=== PATIENT | male | born 1965 | race Hispanic/Latino ===

== ENCOUNTER 2016-12-23 19:01 | Inpatient (IN) | payer OTHER ==
[2016-12-23 19:01] VITALS: BMI 26.9
[2016-12-23] MEDS ORDERED: Sodium Chloride 0.9% 1,000 ML IV ONE (19:54)
[2016-12-23] MEDS ORDERED: Enoxaparin 40 mg Syringe SC STA (19:58)
--- NOTE | 2016-12-23 20:10 | C.PDOC ---
History Of Present Illness Patient is a 51 year old male who presents to the ER complaining of anxiousness , palpations, and light headedness. Patient states he went to the gym today and felt well, went for botox afterwards and had a syncopal episode during the procedure. Patient was helped and felt better, went home and started to feel palpitations in his chest. He decided to go to his doctor's office. Patient states he got an evaluation, EKG, US, and was discharged home. EKG showed A-fib , patient states he has never had A-fib before. Patient reports having an unknown arrhythmia years ago which he was put in ICU for and given medications. Patient denies any shortness of breath, cough, or upper respiratory symptoms. Time Seen by Provider: 12/23/16 19:45 Chief Complaint (Nursing): Shortness Of Breath History Per: Patient History/Exam Limitations: no limitations Onset/Duration Of Symptoms: Hrs Current Symptoms Are (Timing): Still Present Initiating Event: denies: Upper Respiratory Illness, Exercising/Sports Associated Symptoms: Light-headedness. denies: Fever, Chills, Chest Pain Past Medical History Reviewed: Historical Data, Nursing Documentation, Vital Signs Vital Signs: Last Vital Signs Temp 98.4 F 12/24/16 16:18 Pulse 83 12/24/16 16:18 Resp 20 12/24/16 16:18 BP 123/74 12/24/16 16:18 Pulse Ox 96 12/24/16 16:18 - Medical History PMH: Anxiety, HTN - [facility] Procedures IMMOBILIZ/WOUND ATTN NEC (05/10/07) Family History: States: Unknown Family Hx - Social History Hx Tobacco Use: No Hx Alcohol Use: No Hx Substance Use: No - Immunization History Hx Tetanus Toxoid Vaccination: No Hx Influenza Vaccination: No Hx Pneumococcal Vaccination: No Review Of Systems Except As Marked, All Systems Reviewed And Found Negative. Constitutional: Negative for: Fever, Chills Cardiovascular: Positive for: Palpitations, Light Headedness. Negative for: Chest Pain Respiratory: Negative for: Cough, Shortness of Breath Gastrointestinal: Negative for: Nausea, Vomiting Psych: Positive for: Anxiety Physical Exam - Physical Exam Appears: Well, Non-toxic Skin: Normal Color, Warm, Dry Head: Atraumatic, Normacephalic Eye(s): bilateral: PERRL, EOMI Ear(s): Bilateral: Normal Oral Mucosa: Moist Neck: Normal Chest: Symmetrical Cardiovascular: Rhythm Irregular (Rapid a-fib, irregularly irregular), No Edema , No Murmur Respiratory: Normal Breath Sounds, No Rales, No Rhonchi, No Wheezing Gastrointestinal/Abdominal: Soft, No Tenderness Pulses: Left Carotid: Normal, Right Carotid: Normal Neurological/Psych: Oriented x3, Normal Speech, Normal Cognition ED Course And Treatment - Laboratory Results Result Diagrams: 12/24/16 04:39 12/24/16 04:39 Lab Interpretation: No Acute Changes ECG: Interpreted By Me ECG Rhythm: Atrial Fibrillation (with rapid ventricular response) ECG Interpretation: Abnormal O2 Sat by Pulse Oximetry: 100 (Room air) Pulse Ox Interpretation: Normal - Radiology CXR: Interpreted by Me CXR Interpretation: Yes: No Acute Disease Progress Note: EKG, blood work, and chest x-ray. Cardizem IVP, lovenox, and IV fluids administered. Reevaluation Time: 20:57 Reassessment Condition: Improved - Physician Consult Information Time Consulting Physician Contacted: 21:08 Physician Contacted: Giovanny Grajeda Disposition - Disposition Disposition: HOSPITALIZED Disposition Time: 21:10 Condition: GOOD - Clinical Impression Clinical Impression: Atrial fibrillation - Scribe Statement The provider has reviewed the documentation as recorded by the Scribe Henrique Dill All medical record entries made by the Scribe were at my direction and personally dictated by me. I have reviewed the chart and agree that the record accurately reflects my personal performance of the history, physical exam, medical decision making, and the department course for this patient. I have also personally directed, reviewed, and agree with the discharge instructions and disposition.
[2016-12-23] MEDS ORDERED: Enoxaparin 80 mg Syringe ONE (20:11)
[2016-12-23] MEDS ORDERED: Sodium Chloride 0.9% 1,000 ML ONE (20:11)
[2016-12-23 20:17] LABS: BASO # 0.1 K/uL (0.0-0.2); EOS # 0.2 K/uL (0.0-0.7); EOS % 2.2 % (0.0-4.0); HEMATOCRIT 48.7 % (35.0-51.0); LYMPH # 2.8 K/uL (1.0-4.3); LYMPH % 26.6 % (20.0-40.0); MEAN CELL VOLUME 87.1 fL (80.0-94.0); MEAN CORPUSCULAR HEMOGLOBIN 29.8 pg (27.0-31.0); MEAN CORPUSCULAR HGB CONC 34.2 g/dL (33.0-37.0); MEAN PLATELET VOLUME 10.7 fL (7.2-11.7); MONO # 0.8 K/uL (0.0-0.8); MONO % 7.3 % (0.0-10.0); RED CELL DISTRIBUTION WIDTH 13.3 % (11.5-14.5); WHITE BLOOD COUNT 10.4 K/uL (4.8-10.8)
[2016-12-23 20:25] LABS: CHLORIDE 96 mmol/L (98-107); POTASSIUM 3.9 mmol/L (3.6-5.2); SODIUM 140 mmol/L (132-148)
[2016-12-23 20:28] LABS: ALB/GLOB RATIO 1.5 (1.0-2.1); ALKALINE PHOSPHATASE 70 U/L (38-126); ALT/SGPT 26 U/L (21-72); AST/SGOT 26 U/L (17-59); BILIRUBIN,TOTAL 0.7 mg/dL (0.2-1.3); BLOOD UREA NITROGEN 15 mg/dL (9-20); CARBON DIOXIDE 29 mmol/L (22-30); GFR AFRICAN-AMERICAN > 60; GLUCOSE,RANDOM 98 mg/dL (75-110); TOTAL PROTEIN 6.9 g/dL (6.3-8.3)
[2016-12-23 20:29] LABS: CALCIUM 9.1 mg/dl (8.6-10.4)
[2016-12-23 20:33] LABS: PARTIAL THROMBOPLASTIN TIME 29 SECONDS (21-34)
[2016-12-23 20:46] LABS: T4 7.62 ug/dL (5.5-11.0)
[2016-12-23 20:59] LABS: THYROID STIMULATING HORMONE 1.81 mIU/L (0.46-4.68)
[2016-12-24] MEDS ORDERED: Enoxaparin 40 mg Syringe ONE (00:34)
[2016-12-24 02:46] VITALS: RESP 20
[2016-12-24 04:42] LABS: HEMATOCRIT 47.8 % (35.0-51.0); MEAN CELL VOLUME 87.1 fL (80.0-94.0); MEAN CORPUSCULAR HEMOGLOBIN 29.6 pg (27.0-31.0); MEAN PLATELET VOLUME 10.6 fL (7.2-11.7); RED CELL DISTRIBUTION WIDTH 13.6 % (11.5-14.5); WHITE BLOOD COUNT 9.7 K/uL (4.8-10.8)
[2016-12-24 04:59] LABS: CHLORIDE 103 mmol/L (98-107)
[2016-12-24 05:00] LABS: POTASSIUM 3.8 mmol/L (3.6-5.2); SODIUM 141 mmol/L (132-148)
[2016-12-24 05:03] LABS: ALB/GLOB RATIO 1.4 (1.0-2.1); ALKALINE PHOSPHATASE 64 U/L (38-126); ALT/SGPT 27 U/L (21-72); AST/SGOT 20 U/L (17-59); BILIRUBIN,TOTAL 1.1 mg/dL (0.2-1.3); BLOOD UREA NITROGEN 13 mg/dL (9-20); CARBON DIOXIDE 28 mmol/L (22-30); GFR AFRICAN-AMERICAN > 60; GLUCOSE,RANDOM 102 mg/dL (75-110); TOTAL PROTEIN 6.5 g/dL (6.3-8.3)
[2016-12-24 05:04] LABS: CALCIUM 8.7 mg/dl (8.6-10.4)
[2016-12-24] MEDS ORDERED: Enoxaparin 30 mg Syringe SC SCH (10:00)
--- NOTE | 2016-12-24 10:38 | RAD ---
PROCEDURE: CHEST RADIOGRAPH, 1 VIEW HISTORY: Palpations COMPARISON: None available. FINDINGS: LUNGS: Clear. PLEURA: No pneumothorax or pleural fluid seen. CARDIOVASCULAR: Normal. OSSEOUS STRUCTURES: No significant abnormalities. VISUALIZED UPPER ABDOMEN: Normal. OTHER FINDINGS: None. IMPRESSION: No active disease.
--- NOTE | 2016-12-24 13:23 | CP.PCM.HP ---
History of Present Illness - History of Present Illness History of Present Illness: COMPREHENSIVE HISTORY & PHYSICAL EXAM HPI ADMITTED WITH Stewart ROB WITH RVR. A/W PALPITATION . ROUTINE CARDIAC W/U NEG . THYROID FUNCTION NORMAL. ECHO NORMAL PAST HIST. PERSONAL HIST: Smoking. N Alcohol. N Allergy N Travel_- . FAMILY HIST : ROS : Constitutional: Negative for weight change, chills, night sweats, fatigue and usage of assist device. Eyes: Negative for redness, swelling, itching, discharge, vision changes, blurry vision, double vision, glaucoma, cataracts, Ears: Negative for hearing loss, ringing, , tinnitus, vertigo Nose: Negative for rhinorrhea, stuffiness, sniffing, itching, postnasal drip, discoloration, nasal congestion and epistaxis. Throat: Negative for throat clearing, sore throat, hoarseness, difficulty swallowing and difficulty speaking. Respiratory: Negative for cough, chest tightness, sputum or phlegm, chronic cough, hemoptysis, wheezing, snoring at night, pleuritic chest pain and daytime somnolence. Cardiovascular: Negative for chest pain, palpitations, orthopnea, PND, Edema of legs, leg cramps, angina, claudication, , irregular heartbeat, Neurology: Negative for irritability, muscle weakness, numbness and tingling, seizures, tremors, migraines, slurred speech, syncope, memory loss, mood changes , recurrent headaches Gastrointestinal: Negative for difficulty swallowing, diarrhea, constipation, black stools, rectal bleeding, nausea, flatulence, reflux, poor appetite, changes in bowel habits, abdominal pain Genitourinary: Negative for frequent urination, hematuria, discharge, incontinence, urinary retention, frequent UTI, Psychiatric: Negative for depression, anxiety/panic, suicidal tendencies, Musculoskeletal: Negative for swollen joints, back pain, , neck pain, morning stiffness of joints, . Skin: Negative for rash, ulcers, itching, dry skin and pigmented lesions. P/E: Constitutional: Appears stated age and in no apparent distress. Head: Normocephalic. Ears: External ear canals patent without inflammation. Tympanic membranes intact with normal light reflex and landmark. Eyes: Pupils are central, bilaterally equal, symmetrical and reacts to light with normal movements and no icterus or pallor. Nose: External nares are patent. Mucosa is pink Mouth-Throat: Good general appearance and condition. No post-pharyngeal/oropharyngeal erythema and tonsillar hypertrophy. Good dental hygiene. Neck-Lymphatic: Neck is supple with normal ROM, no thyromegaly, lymph nodes or masses. JVD is normal with no carotid bruit. Lungs: Clear to percussion and auscultation with bilateral normal air entry. Cardiovascular: S1 and S2 are normal with no murmurs, gallops and rub. GI Exam: No hepatomegaly. Abdomen is soft and non-tender. No Organomegaly , masses or hernias are evident and bowel sounds are normal and active. Neurology: Higher function and all cranial nerves intact, with no gross motor or sensory deficit. Superficial and deep reflexes are normal with downwards planters. No cerebellar deficit with normal gait. Musculoskeletal: No tender spots with normal curvature of the spine with no swelling or restricted ROM of the small and large joints. Extremities: Homans sign absent. Intact pulses with no pitting edema, calf tenderness or skin color changes. Skin: No rash, eruptions or abnormal skin pigmentation LAB/RADIOLOGY: ASSESMENT : LONE ATRIAL FIBRILLATION PLAN: [id number] SCORE IS ZERO . WILL CONTROL RATE WITH CARDEZEM AND NO ANTICOAGULATION LVEF IS NORMAL, LA SIZE IS NORMAL , NO PULM. HTN Present on Admission - Present on Admission Any Indicators Present on Admission: No Past Patient History - Infectious Disease Hx of Infectious Diseases: None - Past Medical History & Family History Past Medical History?: Yes - Past Social History Smoking Status: Former Smoker - CARDIAC Hx Cardiac Disorders: Yes Hx Hypertension: Yes - PULMONARY Hx Respiratory Disorders: No - NEUROLOGICAL Hx Neurological Disorder: No - HEENT Hx HEENT Problems: No - RENAL Hx Chronic Kidney Disease: No - ENDOCRINE/METABOLIC Hx Endocrine Disorders: No - HEMATOLOGICAL/ONCOLOGICAL Hx Blood Disorders: No - INTEGUMENTARY Hx Dermatological Problems: No - MUSCULOSKELETAL/RHEUMATOLOGICAL Hx Musculoskeletal Disorders: No Hx Falls: No - GASTROINTESTINAL Hx Gastrointestinal Disorders: No Hx Gastroesophageal Reflux: Yes - GENITOURINARY/GYNECOLOGICAL Hx Genitourinary Disorders: No - PSYCHIATRIC Hx Psychophysiologic Disorder: Yes Hx Anxiety: Yes Hx Substance Use: No - SURGICAL HISTORY Hx Surgeries: Yes Hx Orthopedic Surgery: Yes (left knee 2006) - ANESTHESIA Hx Anesthesia: Yes Hx Anesthesia Reactions: No Hx Malignant Hyperthermia: No Meds Allergies/Adverse Reactions: Allergies Allergy/AdvReac Type Severity Reaction Status Date / Time No Known Allergies Allergy Verified 11/27/16 20:30 Results - Vital Signs Recent Vital Signs: Last Vital Signs Temp 97.7 F 12/24/16 08:16 Pulse 98 H 12/24/16 10:00 Resp 20 12/24/16 08:16 BP 123/84 12/24/16 08:16 Pulse Ox 97 12/24/16 08:16 - Labs Result Diagrams: 12/24/16 04:39 12/24/16 04:39 Labs: Laboratory Results - last 24 hr 12/24/16 04:39 WBC 9.7 RBC 5.49 Hgb 16.2 Hct 47.8 MCV 87.1 MCH 29.6 MCHC 34.0 RDW 13.6 Plt Count 166 MPV 10.6 Sodium 141 Potassium 3.8 Chloride 103 Carbon Dioxide 28 Anion Gap 14 BUN 13 Creatinine 1.1 Est GFR ( Amer) > 60 Est GFR (Non-Af Amer) > 60 Random Glucose 102 Calcium 8.7 Total Bilirubin 1.1 AST 20 ALT 27 Alkaline Phosphatase 64 Total Creatine Kinase 57 CK-MB (Mass) 1.05 Troponin I, Quant < 0.0120 Total Protein 6.5 Albumin 3.8 Globulin 2.7 Albumin/Globulin Ratio 1.4
[2016-12-24 16:19] VITALS: BP 123/74; PULSE 83; TEMP 98.4
--- NOTE | 2016-12-25 13:35 | CP.PCM.DIS ---
Provider - Provider Date of Admission: 12/23/16 22:20 Attending physician: Giovanny Grajeda MD Time Spent in preparation of Discharge (in minutes): 30 Hospital Course - Lab Results Lab Results: Most Recent Lab Values WBC 9.7 K/uL (4.8-10.8) 12/24/16 04:39 RBC 5.49 Mil/uL (4.40-5.90) 12/24/16 04:39 Hgb 16.2 g/dL (12.0-18.0) 12/24/16 04:39 Hct 47.8 % (35.0-51.0) 12/24/16 04:39 MCV 87.1 fL (80.0-94.0) 12/24/16 04:39 MCH 29.6 pg (27.0-31.0) 12/24/16 04:39 MCHC 34.0 g/dL (33.0-37.0) 12/24/16 04:39 RDW 13.6 % (11.5-14.5) 12/24/16 04:39 Plt Count 166 K/uL (130-400) 12/24/16 04:39 MPV 10.6 fL (7.2-11.7) 12/24/16 04:39 Neut % (Auto) 62.9 % (50.0-75.0) 12/23/16 20:05 Lymph % (Auto) 26.6 % (20.0-40.0) 12/23/16 20:05 [place] % (Auto) 7.3 % (0.0-10.0) 12/23/16 20:05 Eos % (Auto) 2.2 % (0.0-4.0) 12/23/16 20:05 Baso % (Auto) 1.0 % (0.0-2.0) 12/23/16 20:05 Neut # 6.5 K/uL (1.8-7.0) 12/23/16 20:05 Lymph # 2.8 K/uL (1.0-4.3) 12/23/16 20:05 [place] # 0.8 K/uL (0.0-0.8) 12/23/16 20:05 Eos # 0.2 K/uL (0.0-0.7) 12/23/16 20:05 Baso # 0.1 K/uL (0.0-0.2) 12/23/16 20:05 PT 11.3 SECONDS (9.7-12.2) 12/23/16 20:05 INR 1.0 12/23/16 20:05 APTT 29 SECONDS (21-34) 12/23/16 20:05 D-Dimer, Quantitative < 200 ng/mlDDU (0-243) 12/23/16 20:05 Sodium 141 mmol/L (132-148) 12/24/16 04:39 Potassium 3.8 mmol/L (3.6-5.2) 12/24/16 04:39 Chloride 103 mmol/L (98-107) 12/24/16 04:39 Carbon Dioxide 28 mmol/L (22-30) 12/24/16 04:39 Anion Gap 14 (10-20) 12/24/16 04:39 BUN 13 mg/dL (9-20) 12/24/16 04:39 Creatinine 1.1 MG/DL (0.8-1.5) 12/24/16 04:39 Est GFR ( Amer) > 60 12/24/16 04:39 Est GFR (Non-Af Amer) > 60 12/24/16 04:39 Random Glucose 102 mg/dL (75-110) 12/24/16 04:39 Calcium 8.7 mg/dl (8.6-10.4) 12/24/16 04:39 Total Bilirubin 1.1 mg/dL (0.2-1.3) 12/24/16 04:39 AST 20 U/L (17-59) 12/24/16 04:39 ALT 27 U/L (21-72) 12/24/16 04:39 Alkaline Phosphatase 64 U/L (38-126) 12/24/16 04:39 Total Creatine Kinase 57 U/L (55-170) 12/24/16 14:26 CK-MB (Mass) 0.98 ng/mL (0.0-3.38) 12/24/16 14:26 Troponin I < 0.0120 ng/mL (0.00-0.120) 12/23/16 20:05 Troponin I, Quant < 0.0120 ng/mL (0.00-0.120) 12/24/16 14:26 Total Protein 6.5 g/dL (6.3-8.3) 12/24/16 04:39 Albumin 3.8 g/dL (3.5-5.0) 12/24/16 04:39 Globulin 2.7 gm/dL (2.2-3.9) 12/24/16 04:39 Albumin/Globulin Ratio 1.4 (1.0-2.1) 12/24/16 04:39 Thyroxine (T4) 7.62 ug/dL (5.5-11.0) 12/23/16 20:05 T3 Uptake 31.0 % (23.0-41.0) 12/23/16 20:05 TSH 3rd Generation 1.81 mIU/L (0.46-4.68) 12/23/16 20:05 - Hospital Course Hospital Course: ADMITTED WITH A. FIB WITH RVR. A/W PALPITATION . ROUTINE CARDIAC W/U NEG . THYROID FUNCTION NORMAL. ECHO NORMAL NO LAE PT WAS NORMAL SINUS IN AM [id number] SCORE WAS 1 PT WAS D/ISADORA TO CONT. 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 BONILLA FOR STRESS AND HOLTER MONITOR NO ANTI COAGULATION Discharge Plan - Follow Up Plan Condition: GOOD Disposition: HOME/ ROUTINE Instructions: Atrial Fibrillation (DC), Heart Healthy Diet (DC) Referrals: Giovanny Grajeda MD [Staff Provider] -
--- NOTE | 2016-12-26 17:59 | CARD ---
APPROVED REPORT EXAM: Two-dimensional and M-mode echocardiogram with Doppler and color Doppler. Other Information Quality : AverageRhythm : NSR INDICATION Dyspnea Atrial Fibrillation Palpitations NEW ONSET AFIB M-Mode DIMENSIONS RVDd2.26 (2.1-3.2cm)Left Atrium (MM)3.92 (2.5-4.0cm) IVSd0.73 (0.7-1.1cm)Aortic Root3.19 (2.2-3.7cm) LVDd4.51 (4.0-5.6cm)Aortic Cusp Exc.1.94 (1.5-2.0cm) PWd0.76 (0.7-1.1cm)FS (%) 32 % LVDs3.05 (2.0-3.8cm)LVEF (%)61 (>50%) Mitral Valve MV E Opokdrif28.5cm/sMV A Urwkujff51.2cm/sE/A ratio1.2 TDI E/Lateral E'0.0E/Medial E'0.0 Tricuspid Valve TR Peak [id number]/sTR Peak Gr.[id number] LEFT VENTRICLE The left ventricle is normal size. There is normal left ventricular wall thickness. The left ventricular function is normal. The left ventricular ejection fraction is within the normal range. No regional wall motion abnormalities noted. The left ventricular diastolic function is normal. No left ventricle thrombus noted on this study. There is no ventricular septal defect visualized. There is no left ventricular aneurysm. There is no mass noted in the left ventricle. RIGHT VENTRICLE The right ventricle is normal size. There is normal right ventricular wall thickness. The right ventricular systolic function is normal. ATRIA The left atrium size is normal. The right atrium size is normal. The interatrial septum is intact with no evidence for an atrial septal defect. AORTIC VALVE The aortic valve is mildly sclerotic. No aortic regurgitation is present. There is no aortic valvular stenosis. There is no aortic valvular vegetation. MITRAL VALVE The mitral valve is normal in structure and function. There is no evidence of mitral valve prolapse. There is no mitral valve stenosis. There is no mitral valve regurgitation noted. TRICUSPID VALVE The tricuspid valve is normal in structure and function. There is mild tricuspid regurgitation. There is no tricuspid valve prolapse or vegetation. There is no tricuspid valve stenosis. PULMONIC VALVE The pulmonary valve is normal in structure and function. There is no pulmonic valvular regurgitation. There is no pulmonic valvular stenosis. GREAT VESSELS The aortic root is normal in size. The ascending aorta is normal in size. The pulmonary artery is normal. The IVC is normal in size and collapses >50% with inspiration. PERICARDIAL EFFUSION The pericardium appears normal. There is no pleural effusion. <Conclusion> NEW ONSET AFIB NOTE PT WAS IN SR AT TIME OF IMAGING. The aortic valve is mildly sclerotic. There is mild tricuspid regurgitation. The left ventricular ejection fraction is within the normal range. The left ventricular diastolic function is normal.
--- NOTE | 2016-12-27 08:59 | CARD ---
APPROVED REPORT EKG Measurement Heart [id number] <Conclusion> Atrial fibrillation with rapid ventricular response Abnormal ECG
--- NOTE | 2016-12-28 12:36 | CARD ---
APPROVED REPORT EKG Measurement Heart [id number] <Conclusion> Atrial fibrillation Abnormal ECG
[2017-01-06 16:47] VITALS: O2SAT 100
== END 2016-12-24 17:30 | disposition home or self-care (01) | DRG 139 ==
LOC: C.ER 19:01 → C.6T 22:20
PROVIDERS: ADMIT Internal Medicine Cardiovascular Disease; ATTEND Internal Medicine Cardiovascular Disease
DX: I48.91 Unspecified atrial fibrillation (principal); F41.9 Anxiety disorder, unspecified